=== PATIENT | female | born 1955 | race Caucasian/White ===

== ENCOUNTER → 2023-07-22 11:47 | Outpatient (REF) | payer OTHER, SELFPAY | LOC: HWRAD 11:47 | PROVIDERS: ATTENDING PHYSICIAN Physician Assistant Medical | DX: Z13.820 Encounter for screening for osteoporosis (principal); R20.2 Paresthesia of skin | CPT/HCPCS: 72052; 77080 ==

== ENCOUNTER → 2024-09-14 10:38 | Outpatient (REF) | payer OTHER, SELFPAY | LOC: WDC 10:38 | PROVIDERS: ATTENDING PHYSICIAN Physician Assistant Medical; FAMILY PHYSICIAN Family Medicine | DX: Z12.31 Encounter for screening mammogram for malignant neoplasm of breast (principal) | CPT/HCPCS: 77063; 77067 ==

== ENCOUNTER → 2024-10-03 09:51 | Outpatient (REF) | payer OTHER, SELFPAY | LOC: WDC 09:51 | PROVIDERS: ATTENDING PHYSICIAN Physician Assistant Medical | DX: R92.8 Other abnormal and inconclusive findings on diagnostic imaging of breast (principal) | CPT/HCPCS: 76642 ==

== ENCOUNTER → 2024-10-04 06:44 | Outpatient (REF) | payer OTHER, SELFPAY ==
--- NOTE | 2024-10-04 13:48 | OID.BR.INTR ---
[facility] Breast Navigator - Initial
- -
Did not meet patient at time of biopsy. Will follow up per protocol.
== END ==
LOC: WDC 06:44
PROVIDERS: ATTENDING PHYSICIAN Physician Assistant Medical
DX: N63.13 Unspecified lump in the right breast, lower outer quadrant (principal)
CPT/HCPCS: 88305; 19083; 88342; 88360; A4648

== ENCOUNTER → 2024-11-14 07:47 | Outpatient (REF) | payer MEDICARE, OTHER, SELFPAY | LOC: WDC 07:47 | PROVIDERS: ATTENDING PHYSICIAN Surgery | DX: C50.411 Malignant neoplasm of upper-outer quadrant of right female breast (principal) | CPT/HCPCS: 19285; A4648 ==

== ENCOUNTER 2024-11-15 06:18 | Day surgery (SDC) | payer MEDICARE, OTHER, SELFPAY ==
[2024-11-04 14:32] VITALS: BMI 24.7
[2024-11-15 11:45] VITALS: BMI 24.7
[2024-11-15] MEDS: TYLENOL 1000 MG PO (11:52)
[2024-11-15] MEDS: NORMOSOL-R/PLASMALYTE-A 1000 IV (11:54)
[2024-11-15 12:07] VITALS: BP 137/88
[2024-11-15] MEDS: LOVENOX 40 MG SC (12:51)
[2024-11-15 14:50] VITALS: BP 109/68
[2024-11-15 15:00] VITALS: BP 123/75
[2024-11-15 15:15] VITALS: BP 128/75
[2024-11-15 15:30] VITALS: BP 134/71
--- NOTE | 2024-11-15 16:34 | W.IMMPOSTOP ---
Surgical Immed Post Op Note
-
Primary Surgeon: Cornelia
Assisting Surgeon: None
Pre-op Diagnosis: Right breast ca
Post-op Diagnosis: Same
Procedure Performed: Right localized lumpectomy
Anesthesia Type: TIVA
Specimen / Cultures: right lumpectomy, margins
Estimated Blood Loss: 4cc
Complications: None
Operative Findings: Mass, clip and reflector in specimen
--- NOTE | 2024-11-15 16:35 | OR.RPT ---
Operative Report
Operative Report
Date of procedure: 11/15/2024
Surgeon: Cornelia
Preoperative diagnosis: Right breast carcinoma
Postoperative diagnosis: Same
Procedure: Right localized lumpectomy
The patient is a 69-year-old female who developed an interval change on screening imaging leading to biopsy showing an early stage favorable right breast carcinoma. She met criteria to forego axillary sampling. On the day prior to the procedure
she presented to the [facility] [facility] where Bee reflector was placed at the tumor site. On the day of surgery she presented to same-day surgical services where she was prepped. DVT and antibiotic prophylaxis were provided. She
verified site and procedure.
She was taken to the operating room and in the supine position intravenous sedation was delivered. She was prepped and draped in the usual sterile fashion the team performed an appropriate timeout procedure. All tissues were anesthetized with 1%
lidocaine plain. An inferior circumareolar incision was made sharply after sounding of the Bee reflector. Skin flaps were elevated in the oncoplastic plane with the cautery. The probe was used to identify the location of the tumor which was
widely excised. Time out of body was noted and the specimen was oriented for the pathologist. Specimen radiography confirmed the presence of clip mass and reflector within it. Additional margins were harvested for permanent analysis from the
posterior, medial, superior, lateral, inferior, and anterior dimensions and these were oriented as well. Hemostasis was verified. Marcaine 0.5% plain was instilled and hemoclips were placed in the resection cavity. This wound was closed using
simple interrupted 3-0 plain in deep intermediate and subcutaneous tissue and skin was closed with a running subcuticular 4-0 Monocryl.
Surgical glue and sterile compressive dressing were applied. All sponge needle and instrument counts were correct and the patient was transferred back to same-day surgical services for recovery.
()
== END 2024-11-15 15:50 | disposition home or self-care (01) ==
LOC: SDS 06:18
PROVIDERS: ATTENDING PHYSICIAN Surgery; FAMILY PHYSICIAN Family Medicine
DX: C50.411 Malignant neoplasm of upper-outer quadrant of right female breast (principal); Z17.0 Estrogen receptor positive status [ER+]
CPT/HCPCS: 19301; 76098; 88305; 88307

== ENCOUNTER 2025-01-25 15:47 | Emergency (ER) | payer MEDICARE, OTHER, SELFPAY ==
[2025-01-25 15:51] VITALS: BP 161/102
--- NOTE | 2025-01-25 17:08 | ED.GENMED ---
History of Present Illness
General
Chief Complaint: Skin Surface Trauma
Source: patient
Time Seen by Provider: 01/25/25 16:03
History of Present Illness
History of Present Illness:
69-year-old female with past medical history of hypertension hyperlipidemia presenting to the emergency department for evaluation after she was outside gardening and excellently struck a fence post with the top of her scalp sustaining large
laceration. Patient drove herself here to the hospital. I was called into the room immediately to see the patient due to the bleeding and concern for any potential arterial complication. Patient denies any previous head injuries. Denies
anticoagulant use. No LOC, no vomiting, no visual changes or any extremity related injuries. Unknown last tetanus vaccine
Past History
Past History
ED Past Medical History: HTN, Hypercholesterolemia and Psychiatric
ED Past Surgical History:
Social History
Tobacco: Non-smoker
Alcohol: None
Drug: None
Personal:
Living: with family
Review of Systems
Review of Systems
All Other Systems: ROS reviewed and negative except as documented in HPI and ROS
Phy Exam
Physical Exam
Physical Exam:
GENERAL: Alert , in no apparent distress
EYE: conjunctiva clear
Head: large 6cm curvilinear laceration to mid scalp with active bleeding but no arterial spurting. Moderate hematoma distal to laceration likely source of bleeding
NECK: Supple,
ENT: mmm.
LUNGS: no acute respiratory distress
NEUROLOGICAL: Alert and oriented
SKIN: Warm and dry
MUSCULOSKELETAL: well perfused.
PSYCH: Normal and appropriate interaction.
Scores
Heart Failure Risk
Heart Failure Risk Score: Not Applicable
Heart Score for Chest Pain Patients
STEMI patient?: Not applicable
Withdrawal Assessment of Alcohol
Withdrawal Assessment Completed?: Not applicable
Course
Orders/Labs/Results
Orders:
Orders
01/25/25 16:[address] [CT Head W/o Iv Contrast] Urgent
Comment:
Reason For Exam: head injury, laceration
01/25/25 16:57
Cephalexin Monohydrate [Keflex] 500 mg PO NOW STA
Tetanus/Diphth/Acelpertussis [Adacel] 0.5 ml IM .ONCE ONE
Vital Signs
Initial and Last Documented VS:
Initial Vital Signs
Temp Pulse Resp BP Pulse Ox
98.9 F 101 16 161/102 98
01/25/25 15:51 01/25/25 15:51 01/25/25 15:51 01/25/25 15:51 01/25/25 15:51
Last Documented Vital Signs
Temp Pulse Resp BP Pulse Ox
98.9 F 71 18 148/97 99
01/25/25 15:51 01/25/25 17:28 01/25/25 17:28 01/25/25 17:28 01/25/25 17:28
Procedures
Laceration Closure
Middle Scalp:
Status of Wound: clean
Size of Wound in cm: 6
Description of Wound Edges: sharp
Preparation: cleaned with saline
Anesthesia: 1% Lidocaine with epi
Wound exploration: explored to base- no FB
Type of Closure: layered closure
Skin Closure Material: skin justin (22) and 4-0 vicryl
Number of sutures: 10
MDM/Problems Addressed
Differential Diagnosis Includes:
Laceration
Skull fx
ICH
Concussion
MDM/Problems Addressed:
69-year-old female presenting to the ER for evaluation following significant laceration to the mid scalp. I was immediately brought to patient's room with concern for arterial bleeding however no arterial bleeding identified but I do suspect the
bleeding is likely related to hematoma that was adjacent to the laceration. Laceration was repaired as above. Will obtain CT of the head depth of the laceration to ensure no skull fracture. Will update patient's tetanus and will treat with a
short course of Keflex. Patient declining anything for headache.
*Radiology
Radiology exam reviewed: radiology read reviewed
*Pulse Oximetry
SaO2: 98
Oxygen Mode of Delivery: Room air
Patient hypoxic: no
*Critical Care Note
Total Time (30-74mins, 75-104mins- exclusive of procedures): Not Applicable
Patient Management
Escalation/DeEscalation of care consider admission/obs:
CT of the head is negative for any acute or emergent pathologies. Patient advised on wound care. Staple removal in 1 week. Patient aware of return precautions to the ER. Can use NSAIDs/Tylenol as needed for pain. Aware of return precautions to
the ER.
ED Attending Note
-
Portions of this chart may have been created with voice recognition software.� Occasional wrong word or��sound alike� substitutions may have occurred due to the inherent limitations of voice recognition software.
Discharge Plan
Departure
Patient Disposition: Home (Routine Discharge)
Date of Disposition: 01/25/25
Time of Disposition: 17:32
Patient with high blood pressure during this ER visit?: Yes
Discharge Problem:
Laceration of scalp
Instructions: Laceration Repair With Stitches (DC)
Prescriptions:
New
cephalexin 500 mg tablet
500 mg PO BID 5 Days Qty: 10 0RF
No Action
ibuprofen 200 mg Capsule
200 mg PO Q6H PRN (Reason: pain)
alprazolam 0.25 mg Tablet
0.25 mg PO DAILY PRN (Reason: anxiety)
amlodipine 10 mg Tablet
10 mg PO DAILY
doxycycline hyclate 20 mg Tablet
20 mg PO BID
fluticasone propionate [Flonase] 50 mcg/actuation [place],Suspension
1 spray INTRANASAL BID PRN (Reason: allergies)
sertraline 50 mg Tablet
75 mg PO DAILY
loratadine 10 mg Tablet
10 mg PO DAILY PRN (Reason: allergies)
rosuvastatin 20 mg Tablet
20 mg PO DAILY
Referrals:
Yvonne Alvarado PA-C [Family Provider, Family Practice]
Activity Restrictions/Additional Instructions:
Staple removal in 1 week
Interventions
Interventions:
*Risk Screen - Suicide Last Done: 01/25/25 15:51
*General Assessment Last Done: 01/25/25 15:51
*Neglect/Abuse Screening Last Done: 01/25/25 15:51
*ED- Fall Risk Assessment Last Done: 01/25/25 15:51
*ED COVID-19 Vaccine History Last Done: 01/25/25 15:51
*ED Influenza Vaccine History Last Done: 01/25/25 15:51
*Nursing Disposition Last Done: 01/25/25 17:44
ED-Skin Assessment Last Done: 01/25/25 16:15
Discharge Date and Time
Discharge Date/Time: 01/25/25 17:45
Print Language: PERSIAN
[2025-01-25 17:28] VITALS: BP 148/97; BMI 24.1
[2025-01-25] MEDS: KEFLEX 500 MG PO (17:30)
[2025-01-25] MEDS: ADACEL 0.5 ML IM (17:32)
== END 2025-01-25 17:45 | disposition home or self-care (01) ==
LOC: EMR 15:47
PROVIDERS: EMERGENCY PHYSICIAN Emergency Medicine; FAMILY PHYSICIAN Physician Assistant Medical
DX: S01.01XA Laceration without foreign body of scalp, initial encounter (principal); I10 Essential (primary) hypertension; E78.00 Pure hypercholesterolemia, unspecified; Z23 Encounter for immunization; W22.09XA Striking against other stationary object, initial encounter; Y93.H2 Activity, gardening and landscaping; Y92.007 Garden or yard of unspecified non-institutional (private) residence as the place of occurrence of the external cause
CPT/HCPCS: 99284; 12032; 90471; 70450; 90715

== ENCOUNTER → 2025-02-17 12:39 | Outpatient (REF) | payer MEDICARE, OTHER, SELFPAY | LOC: PAVMRI 12:39 | PROVIDERS: ATTENDING PHYSICIAN Specialist; FAMILY PHYSICIAN Physician Assistant Medical | DX: G30.1 Alzheimer's disease with late onset (principal) | CPT/HCPCS: 70553; A9575 ==